=== PATIENT | female | born 1965 | race Two or more races ===

== ENCOUNTER 2024-12-11 19:13 | Emergency (ER) | payer OTHER ==
[~2024-12-11] VITALS: Ht 165.1 cm; Wt 68.0 kg
[~2024-12-11 19:13] MED LIST: NP THYROID 120120 MG
[2024-12-11 19:34] VITALS: BP 114/778; O2SAT 96
[2024-12-11] MEDS ORDERED: OxyCODONE HCL/APAP UD (PERCOCET) PO STA (20:59)
[2024-12-11] MEDS ORDERED: KETOROLAC TROMETHAMINE 60 MG VIAL IM STA (20:59)
[2024-12-11] MEDS ORDERED: KETOROLAC TROMETHAMINE 60 MG VIAL IM ONE (21:16)
== END 2024-12-12 00:15 | disposition home or self-care (01) ==
LOC: ER 19:13
DX: S00.33XA Contusion of nose, initial encounter (principal); S40.012A Contusion of left shoulder, initial encounter; S50.02XA Contusion of left elbow, initial encounter; S80.02XA Contusion of left knee, initial encounter; S50.12XA Contusion of left forearm, initial encounter; W18.39XA Other fall on same level, initial encounter; Y93.K1 Activity, walking an animal; Y92.89 Other specified places as the place of occurrence of the external cause; Y99.9 Unspecified external cause status; Z88.2 Allergy status to sulfonamides